=== PATIENT | female | born 1970 | race Caucasian/White ===

== ENCOUNTER 2019-04-09 09:03 | Day surgery (SDC) | payer MEDICARE ==
[2019-04-09] MEDS ORDERED: Depo-Medrol 40 MG/ML IM ONE (09:04)
[2019-04-09] MEDS ORDERED: Xylocaine-Mpf 2% 5 Ml Vial IJ ONE (09:04)
[2019-04-09] MEDS ORDERED: DIPRIVAN 200 MG/20 ML IV ONE (10:13)
[2019-04-09] MEDS ORDERED: Ketamine HCl 50 MG/ML ONE (10:13)
--- NOTE | 2019-04-09 11:08 | XRAY ---
Indication: Bilateral L4-S1 MBB. Intraoperative fluoroscopy was provided for 8 seconds. Single digital spot image submitted for interpretation demonstrates posterior needle tips projecting over the expected course of the left and right L4-S1 nerve roots. Correlate with intraoperative findings/report.
--- NOTE | 2019-04-09 11:08 | XRAY ---
8 seconds fluoroscopy time in surgery for bilateral L4-S1 MBB.
[2019-04-09] MEDS ORDERED: Lactated Ringers 1,000 ML IV ONE (13:41)
== END 2019-04-09 10:38 | disposition home or self-care (01) ==
LOC: SDC-PAIN 09:03
PROVIDERS: ATTEND Psychiatry & Neurology Pain Medicine
DX: M47.816 Spondylosis without myelopathy or radiculopathy, lumbar region (principal); M06.9 Rheumatoid arthritis, unspecified; M47.814 Spondylosis without myelopathy or radiculopathy, thoracic region; M47.812 Spondylosis without myelopathy or radiculopathy, cervical region; F41.8 Other specified anxiety disorders; M54.81 Occipital neuralgia; G62.9 Polyneuropathy, unspecified; Z79.899 Other long term (current) drug therapy
CPT/HCPCS: 64493; 64494; 72020; 77002; J1030; J2704

== ENCOUNTER 2019-07-30 10:57 | Day surgery (SDC) | payer MEDICARE ==
[2019-07-30] MEDS ORDERED: Depo-Medrol 40 MG/ML IM ONE (10:58)
[2019-07-30] MEDS ORDERED: Marcaine 0.5% SDV 10 ML IM ONE (10:58)
[2019-07-30] MEDS ORDERED: DIPRIVAN 200 MG/20 ML IV ONE (12:15)
[2019-07-30] MEDS ORDERED: Ketamine HCl 50 MG/ML ONE (12:15)
--- NOTE | 2019-07-30 14:10 | XRAY ---
6 seconds fluoroscopy time in surgery for bilateral L4-S1 MBB.
--- NOTE | 2019-07-30 14:21 | XRAY ---
Indication: Bilateral L4-S1 MBB. Intraoperative fluoroscopy was provided for 6 seconds. Single digital spot image submitted for interpretation demonstrates posterior needle tips projecting over the expected course of the left and right L4-S1 nerve roots. Correlate with intraoperative findings/report.
[2019-07-30] MEDS ORDERED: Lactated Ringers 1,000 ML IV ONE (14:54)
== END 2019-07-30 12:43 | disposition home or self-care (01) ==
LOC: SDC-PAIN 10:57
PROVIDERS: ATTEND Psychiatry & Neurology Pain Medicine
DX: M47.816 Spondylosis without myelopathy or radiculopathy, lumbar region (principal); M06.9 Rheumatoid arthritis, unspecified; F41.8 Other specified anxiety disorders; G62.9 Polyneuropathy, unspecified; M47.812 Spondylosis without myelopathy or radiculopathy, cervical region; M47.814 Spondylosis without myelopathy or radiculopathy, thoracic region; Z79.899 Other long term (current) drug therapy
CPT/HCPCS: 64493; 64494; 72020; 77002; J1030; J2704

== ENCOUNTER 2019-11-12 09:13 | Day surgery (SDC) | payer MEDICARE ==
[~2019-11-12 09:13] MED LIST: DIPRIVAN 200 MG/20 ML IV ONE; Ketamine HCl 50 MG/ML ONE
[2019-11-12] MEDS ORDERED: Depo-Medrol 40 MG/ML IM ONE (09:14)
[2019-11-12] MEDS ORDERED: BUPIVACAINE 0.5% VIAL IJ ONE (09:14)
[2019-11-12] MEDS ORDERED: Xylocaine 1% Vial 30 ML PF IJ ONE (09:14)
--- NOTE | 2019-11-12 12:08 | XRAY ---
Indication: Right L4-S1 RFA. Intraoperative fluoroscopy provided for 21 seconds. 3 digital spot images submitted for interpretation demonstrates posterior needle tips projecting over the expected right L4-S1 nerve roots. Correlate with intraoperative findings/report.
--- NOTE | 2019-11-12 12:30 | XRAY ---
21 seconds fluoroscopy time in surgery for right L4-S1 RFA.
[2019-11-12] MEDS ORDERED: Lactated Ringers 1,000 ML IV ONE (13:44)
== END 2019-11-12 11:03 | disposition home or self-care (01) ==
LOC: SDC-PAIN 09:13
PROVIDERS: ATTEND Psychiatry & Neurology Pain Medicine
DX: M47.816 Spondylosis without myelopathy or radiculopathy, lumbar region (principal); M47.812 Spondylosis without myelopathy or radiculopathy, cervical region; M47.814 Spondylosis without myelopathy or radiculopathy, thoracic region; M06.9 Rheumatoid arthritis, unspecified; F41.8 Other specified anxiety disorders; Z79.899 Other long term (current) drug therapy
CPT/HCPCS: 72100; 77002; J1030; J2001; J2704

== ENCOUNTER 2019-11-19 10:26 | Day surgery (SDC) | payer MEDICARE ==
[2019-11-19] MEDS ORDERED: BUPIVACAINE 0.5% VIAL IJ ONE (10:27)
[2019-11-19] MEDS ORDERED: Xylocaine 1% Vial 30 ML PF IJ ONE (10:27)
[2019-11-19] MEDS ORDERED: Depo-Medrol 40 MG/ML IM ONE (10:27)
--- NOTE | 2019-11-19 14:09 | XRAY ---
Indication: Left L4-S1 RFA. Intraoperative fluoroscopy was provided for 28 seconds. 3 digital spot images submitted for interpretation demonstrates posterior needle tips projecting over the expected left L4-S1 nerve roots. Correlate with intraoperative findings/report.
[2019-11-19] MEDS ORDERED: Lactated Ringers 1,000 ML IV ONE (15:58)
--- NOTE | 2019-11-19 16:27 | XRAY ---
28 seconds fluoroscopy time in surgery for left L4-S1 RFA.
== END 2019-11-19 13:20 | disposition home or self-care (01) ==
LOC: SDC-PAIN 10:26
PROVIDERS: ATTEND Psychiatry & Neurology Pain Medicine
DX: M47.816 Spondylosis without myelopathy or radiculopathy, lumbar region (principal); M06.9 Rheumatoid arthritis, unspecified; F41.8 Other specified anxiety disorders; M54.81 Occipital neuralgia; G62.9 Polyneuropathy, unspecified; Z79.899 Other long term (current) drug therapy
CPT/HCPCS: 64635; 64636; 72100; 77002; J1030; J2001; J2704

== ENCOUNTER 2019-11-26 12:07 | Day surgery (SDC) | payer MEDICARE ==
[2019-11-26] MEDS ORDERED: Depo-Medrol 40 MG/ML IM ONE (12:08)
[2019-11-26] MEDS ORDERED: BUPIVACAINE 0.5% VIAL IJ ONE (12:08)
[2019-11-26] MEDS ORDERED: Lactated Ringers 1,000 ML IV ONE (13:49)
--- NOTE | 2019-11-26 15:04 | XRAY ---
Indication: Left hip injection. Intraoperative fluoroscopy was provided for 10 seconds. Single digital spot image submitted for interpretation demonstrates needle tip just lateral to the left femur neck. Small amount of contrast injected for needle tip placement. Correlate with intraoperative findings/report.
--- NOTE | 2019-11-26 16:55 | XRAY ---
10 seconds of fluoroscopy was used in surgery for a left intra-articular hip injection.
== END 2019-11-26 13:57 | disposition home or self-care (01) ==
LOC: SDC-PAIN 12:07
PROVIDERS: ATTEND Psychiatry & Neurology Pain Medicine
DX: M16.12 Unilateral primary osteoarthritis, left hip (principal); M06.9 Rheumatoid arthritis, unspecified; G62.9 Polyneuropathy, unspecified; F41.8 Other specified anxiety disorders; M54.81 Occipital neuralgia; Z79.899 Other long term (current) drug therapy
CPT/HCPCS: 20610; 73501; 77002; J1030; J2704

== ENCOUNTER 2020-03-10 11:54 | Day surgery (SDC) | payer MEDICARE ==
[2020-03-10] MEDS ORDERED: LIDOCAINE HCL 2% 100 MG/5 ML IJ ONE (11:55)
[2020-03-10] MEDS ORDERED: Decadron 4 MG INJ IV ONE (11:55)
[2020-03-10] MEDS ORDERED: DIPRIVAN 200 MG/20 ML IV ONE (14:27)
[2020-03-10] MEDS ORDERED: Ketamine HCl 50 MG/ML ONE (14:27)
[2020-03-10] MEDS ORDERED: Lactated Ringers 1,000 ML IV ONE (14:37)
--- NOTE | 2020-03-10 16:20 | XRAY ---
Indication: Right C2-C5 MBB. Intraoperative fluoroscopy provided for 18 seconds. 2 digital spot images submitted for interpretation demonstrates posterior needle tips projecting over the expected right C2-C5 nerve roots. Correlate with intraoperative findings/report.
--- NOTE | 2020-03-10 16:37 | XRAY ---
18 seconds fluoroscopy time in surgery for right C2-C5 MBB.
== END 2020-03-10 15:00 | disposition home or self-care (01) ==
LOC: SDC-PAIN 11:54
PROVIDERS: ATTEND Psychiatry & Neurology Pain Medicine
DX: M47.812 Spondylosis without myelopathy or radiculopathy, cervical region (principal); M06.9 Rheumatoid arthritis, unspecified; F41.8 Other specified anxiety disorders; M54.81 Occipital neuralgia; G62.9 Polyneuropathy, unspecified; Z79.899 Other long term (current) drug therapy
CPT/HCPCS: 64490; 64491; 64492; 72020; 77002; J1100; J2704

== ENCOUNTER 2020-09-01 14:41 | Day surgery (SDC) | payer MEDICARE ==
[2020-09-01] MEDS ORDERED: BUPIVACAINE 0.5% VIAL IJ ONE (14:42)
[2020-09-01] MEDS ORDERED: Decadron 4 MG INJ IV ONE (14:42)
--- NOTE | 2020-09-01 17:29 | XRAY ---
28 seconds fluoroscopy time in surgery for right C2-C5 MBB.
--- NOTE | 2020-09-01 17:29 | XRAY ---
Indication: Right C2-C5 MBB. Intraoperative fluoroscopy provided for 28 seconds. 2 digital spot images submitted for interpretation demonstrates posterior needle tips projecting over the expected right C2-C5 nerve roots. Correlate with intraoperative findings/report.
[2020-09-01] MEDS ORDERED: Lactated Ringers 1,000 ML IV ONE (18:50)
== END 2020-09-01 17:23 | disposition home or self-care (01) ==
LOC: SDC-PAIN 14:41
PROVIDERS: ATTEND Psychiatry & Neurology Pain Medicine
DX: M47.812 Spondylosis without myelopathy or radiculopathy, cervical region (principal); Z79.899 Other long term (current) drug therapy
CPT/HCPCS: 64490; 64491; 64492; 72040; 77002; J1100

== ENCOUNTER 2020-12-01 15:23 | Day surgery (SDC) | payer MEDICARE ==
[2020-12-01] MEDS ORDERED: Xylocaine 1% Vial 30 ML PF IJ ONE (15:24)
[2020-12-01] MEDS ORDERED: BUPIVACAINE 0.5% VIAL IJ ONE (15:24)
[2020-12-01] MEDS ORDERED: Depo-Medrol 40 MG/ML IM ONE (15:24)
[2020-12-01] MEDS ORDERED: Lactated Ringers 1,000 ML IV ONE (17:30)
[2020-12-01] MEDS ORDERED: DIPRIVAN 200 MG/20 ML IV ONE (18:14)
--- NOTE | 2020-12-02 07:15 | XRAY ---
Indication: Right C2-C5 RFA. Intraoperative fluoroscopy provided for 24 seconds. 2 digital spot images submitted for interpretation demonstrates posterior needle tips projecting over the expected right C2-C5 nerve roots. Correlate with intraoperative findings/report.
--- NOTE | 2020-12-02 10:20 | XRAY ---
24 seconds fluoroscopy time in surgery for right C2-C5 RFA.
== END 2020-12-01 18:53 | disposition home or self-care (01) ==
LOC: SDC-PAIN 15:23
PROVIDERS: ATTEND Psychiatry & Neurology Pain Medicine
DX: M47.812 Spondylosis without myelopathy or radiculopathy, cervical region (principal); F41.9 Anxiety disorder, unspecified; F32.9 Major depressive disorder, single episode, unspecified; G43.909 Migraine, unspecified, not intractable, without status migrainosus; J42 Unspecified chronic bronchitis; M19.90 Unspecified osteoarthritis, unspecified site; M54.81 Occipital neuralgia; Z79.899 Other long term (current) drug therapy
CPT/HCPCS: 64633; 64634; 72040; 77002; J1030; J2001; J2704

== ENCOUNTER 2022-08-31 08:01 | Day surgery (SDC) | payer MEDICARE ==
[2022-08-31] MEDS ORDERED: BUPIVACAINE 0.5% VIAL IJ ONE (08:02)
[2022-08-31] MEDS ORDERED: Depo-Medrol 40 MG/ML IM ONE (08:02)
[2022-08-31] MEDS ORDERED: DIPRIVAN 200 MG/20 ML IV ONE (10:04)
--- NOTE | 2022-08-31 11:03 | XRAY ---
Indication: Bilateral SI joint injection. Intraoperative fluoroscopy provided for 16 seconds. 5 digital spot image submitted for interpretation demonstrates posterior needle tip projecting over the left and right SI joint. Correlate with intraoperative findings/report.
[2022-08-31] MEDS ORDERED: Lactated Ringers 1,000 ML IV ONE (11:42)
--- NOTE | 2022-08-31 11:51 | XRAY ---
16 seconds of fluoroscopy was used in surgery for a bilateral sacroiliac joint injection.
== END 2022-08-31 10:36 | disposition home or self-care (01) ==
LOC: SDC-PAIN 08:01
PROVIDERS: ATTEND Psychiatry & Neurology Pain Medicine
DX: M46.1 Sacroiliitis, not elsewhere classified (principal); Z79.899 Other long term (current) drug therapy
CPT/HCPCS: 27096; 72202; 77002; G0260; J1030; J2704

== ENCOUNTER 2023-04-11 11:05 | Day surgery (SDC) | payer MEDICARE ==
[2023-04-11] MEDS ORDERED: BUPIVACAINE 0.5% VIAL IJ ONE (11:06)
[2023-04-11] MEDS ORDERED: DIPRIVAN 200 MG/20 ML IV ONE (13:14)
[2023-04-11] MEDS ORDERED: Lactated Ringers 1,000 ML IV ONE (14:02)
--- NOTE | 2023-04-11 15:06 | XRAY ---
Indication: Right C3-C5 MBB Intraoperative fluoroscopy provided for 12 seconds. 2 digital spot image submitted for interpretation demonstrates posterior needle tips projecting over expected right C3-C5 nerve roots. Correlate with intraoperative findings/report.
--- NOTE | 2023-04-11 15:21 | XRAY ---
12 seconds of fluoroscopy was used in surgery for a right C3-C5 MBB.
== END 2023-04-11 13:42 | disposition home or self-care (01) ==
LOC: SDC-PAIN 11:05
PROVIDERS: ATTEND Psychiatry & Neurology Pain Medicine
DX: M47.812 Spondylosis without myelopathy or radiculopathy, cervical region (principal)
CPT/HCPCS: 64490; 64491; 72040; 77002; J2704

== ENCOUNTER 2023-11-07 09:41 | Day surgery (SDC) | payer MEDICARE ==
[2023-11-07] MEDS ORDERED: Decadron 4 MG INJ IV ONE (09:42)
[2023-11-07] MEDS ORDERED: BUPIVACAINE 0.5% VIAL IJ ONE (09:42)
[2023-11-07] MEDS ORDERED: LIDOCAINE HCL 1% AMPUL 5 ML IJ ONE (09:42)
[2023-11-07] MEDS ORDERED: Lactated Ringers 1,000 ML IV ONE (11:23)
[2023-11-07] MEDS ORDERED: DIPRIVAN 200 MG/20 ML IV ONE (11:30)
--- NOTE | 2023-11-07 12:45 | XRAY ---
Indication: Right C3-C5 RFA. Intraoperative fluoroscopy provided 23 seconds. 3 digital spot image submitted for interpretation demonstrates posterior needle tips projecting over the expected right C3-C5 nerve roots. Correlate with intraoperative findings/report. Incidental lower cervical fusion hardware.
--- NOTE | 2023-11-07 15:00 | XRAY ---
23 seconds of fluoroscopy was used in surgery for a right C3-C5 RFA.
== END 2023-11-07 11:58 | disposition home or self-care (01) ==
LOC: SDC-PAIN 09:41
PROVIDERS: ATTEND Psychiatry & Neurology Pain Medicine
DX: M47.812 Spondylosis without myelopathy or radiculopathy, cervical region (principal)
CPT/HCPCS: 64633; 64634; 72040; 77002; J1100; J2704